=== PATIENT | female | born 1970 | race Caucasian/White ===

== ENCOUNTER 2023-06-25 16:25 | Emergency (ER) | payer BC, SELFPAY ==
[2023-06-25 16:44] VITALS: BP 160/98; PULSE 70; RESP 18; TEMP 36.6; O2SAT 99; BMI 47.0
--- NOTE | 2023-06-25 17:07 | US_ITS ---
The [address] [address] Patient Name: MEHRAN PATEL MRN: [id number] date: 1970 Sex: F Assigned Patient Location: ER Current Patient Location: Accession/Order Number: [id number] Exam Date: 06/25/2023 19:15 Report Date: 06/25/2023 20:34 At the request of: RYLEY HERRMANN Procedure: US venous doppler LE RT EXAM: US venous doppler LE RT HISTORY: dvt . Right leg pain and swelling for 2 days. COMPARISON: None. TECHNIQUE: Multiple sonographic images of the deep veins of the right lower extremity were obtained, supplemented with Doppler. FINDINGS: The deep veins of the right lower extremity are fairly well-visualized the groin to the mid calf. No filling defect is identified to indicate a thrombus. There is normal compression and augmentation of flow throughout. US/US venous doppler LE RT IMPRESSION: There is no direct or indirect evidence of deep vein thrombosis in the right lower extremity at this time. Electronically authenticated by: LEONORA GARCIA Date: 06/25/2023 20:34
--- NOTE | 2023-06-25 17:25 | ED_ITS ---
HPI - General Adult General Chief complaint: Extremity Injury, Lower Stated complaint: LOWER PAIN Time Seen by Provider: 06/25/23 17:07 Source: patient Mode of arrival: walk-in History of Present Illness HPI narrative: patient is a 52-year-old female who presents to the emergency department with concern for possible deep vein thrombosis. She expresses frustration that she called her PCPs office and they referred her to the Emergency Room for this. She has had two week history of swelling to the lower extremities bilaterally, she states she is on her feet for most of her work day. she has no personal history of deep vein thrombosis or PE. She states her mother did have a blood clot. She denies any injuries or traumas. She reports pain to the right posterior calf, she states it is tight. she denies the need for pain medication at this time. Related Data Previous Rx's Medication Instructions Recorded methocarbamol 750 mg tablet 750 mg PO TID PRN pain #20 tabs 06/25/23 Allergies Allergy/AdvReac Type Severity Reaction Status Date / Time No Known Drug Allergies Allergy Verified 06/25/23 16:50 Review of Systems ROS Constitutional Denies: fever or chills Ears, nose, mouth, and throat Denies: throat pain Cardiovascular Denies: chest pain Respiratory Denies: shortness of breath or cough Gastrointestinal Denies: nausea or vomiting Musculoskeletal Reports: extremity pain and extremity swelling; Denies: back pain or neck pain Integumentary/Breast Denies: rash Exam Narrative Exam Narrative: Gen.: Awake, alert, in no distress Head: Normocephalic, atraumatic ENT: Moist mucous membranes Respiratory: No respiratory distress Extremities: Moves extremities equally, no injuries noted; bilateral lower extremities with mild nonpitting edema. Right posterior calf is mildly tender, no erythema noted Psych: Normal mood and affect Neuro: No focal neuro deficit Skin: Warm, dry, intact Constitutional Vital Signs, click to edit/add: Last Vital Signs Temp 97.8 F 06/25/23 16:44 Pulse 70 06/25/23 16:44 Resp 18 06/25/23 16:44 BP 160/98 H 06/25/23 16:44 Pulse Ox 99 06/25/23 16:44 O2 Del Method Room Air 06/25/23 16:44 Course Vital Signs Vital signs: Vital Signs Temperature 97.8 F 06/25/23 16:44 Pulse Rate 70 06/25/23 16:44 Respiratory Rate 18 06/25/23 16:44 Blood Pressure 160/98 H 06/25/23 16:44 Pulse Oximetry 99 06/25/23 16:44 Oxygen Delivery Method Room Air 06/25/23 16:44 Temperature 97.8 F 06/25/23 16:44 Pulse Rate 70 06/25/23 16:44 Respiratory Rate 18 06/25/23 16:44 Blood Pressure 160/98 H 06/25/23 16:44 Pulse Oximetry 99 06/25/23 16:44 Oxygen Delivery Method Room Air 06/25/23 16:44 Medical Decision Making MDM Narrative Medical decision making narrative: ultrasound of the right lower extremity with no evidence of deep vein thrombosis. Laboratory studies within normal limits as well, no evidence of kidney failure or heart failure. Patient discharged home with muscle relaxant for musculoskeletal calf pain. Follow-up with PCP and return to the Emergency Room if symptoms change or worsen Medical Records Medical records reviewed: Yes I reviewed the patient's medical records Lab Data Lab results reviewed: Yes I reviewed the patient's lab results Labs: Lab Results 06/25/23 Range/Units 17:37 WBC 10.1 (4.0-11.0) 10^3/uL RBC 4.47 (4.20-5.40) 10^6/uL Hgb 11.9 L (12.0-16.0) g/dL Hct 36.6 (36.0-48.0) % MCV 81.9 (81.0-99.0) fL MCH 26.6 L (26.7-34.0) pg MCHC 32.5 (29.9-35.2) g/dL RDW 15.1 H (11.0-15.0) % Plt Count 469 H (150-450) 10^3/uL MPV 9.2 L (9.5-13.5) fL Neut % (Auto) 63.5 (43.0-75.0) % Lymph % (Auto) 26.4 (20.5-60.0) % Shoshone % (Auto) 7.1 (1.7-12.0) % Eos % (Auto) 2.0 (0.9-7.0) % Baso % (Auto) 0.6 (0.2-2.0) % Neut # (Auto) 6.4 (1.4-6.5) 10^3/uL Lymph # (Auto) 2.7 (1.2-3.8) 10^3/uL Shoshone # (Auto) 0.7 (0.3-0.8) 10^3/uL Eos # (Auto) 0.2 (0.0-0.7) 10^3/uL Baso # (Auto) 0.1 (0.0-0.1) 10^3/uL Abs Immat Gran (auto) 0.04 H (0.00-0.03) 10^3/uL Imm/Tot Granulo (auto) 0.4 (0.0-0.5) % Sodium 140 (136-145) mmol/L Potassium 3.6 (3.5-5.1) mmol/L Chloride 102 (98-107) mmol/L Carbon Dioxide 29.8 (21.0-32.0) mmol/L Anion Gap 11.8 BUN 9.0 (7.0-18.0) mg/dL Creatinine 0.65 (0.55-1.02) mg/dL Est GFR ( Amer) >60 (>=60) Est GFR (Non-Af Amer) >60 (>=60) BUN/Creatinine Ratio 13.8 Glucose 110 H (74-106) mg/dL Calcium 8.6 (8.5-10.1) mg/dL NT-Pro-B Natriuret Pep 61.0 (<=900.0) pg/mL Imaging Data Venous US: Attestation: I have reviewed the pertinent imaging results. Discharge Plan Discharge Chief Complaint: Extremity Injury, Lower Clinical Impression: Right calf pain Patient Disposition: Home, Self-Care Time of Disposition Decision: 20:09 Condition: Good Prescriptions / Home Meds: New methocarbamol 750 mg tablet 750 mg PO TID PRN (Reason: pain) Qty: 20 0RF Instructions: Leg Pain (ED) Stand Alone Forms: Portal Instructions Referrals: Physician,Non-Staff, MD [Primary Care Provider] - 1 week
[2023-06-25 17:45] LABS: Basophils Absolute Auto 0.1 10^3/uL (0.0-0.1); Basophils Percent Auto 0.6 % (0.2-2.0); Eosinophils Absolute Auto 0.2 10^3/uL (0.0-0.7); Hematocrit 36.6 % (36.0-48.0); Hemoglobin 11.9 g/dL (12.0-16.0); Immature Granulocytes Abs Auto 0.04 10^3/uL (0.00-0.03); Immature Granulocytes Pct Auto 0.4 % (0.0-0.5); Lymphocytes Absolute Auto 2.7 10^3/uL (1.2-3.8); Lymphocytes Percent Auto 26.4 % (20.5-60.0); Mean Corpuscular HGB Conc 32.5 g/dL (29.9-35.2); Mean Corpuscular Hemoglobin 26.6 pg (26.7-34.0); Mean Corpuscular Volume 81.9 fL (81.0-99.0); Mean Platelet Volume 9.2 fL (9.5-13.5); Monocytes Absolute Auto 0.7 10^3/uL (0.3-0.8); Monocytes Percent Auto 7.1 % (1.7-12.0); Neutrophils Absolute Auto 6.4 10^3/uL (1.4-6.5); Neutrophils Percent Auto 63.5 % (43.0-75.0); Platelet Count 469 10^3/uL (150-450); Red Blood Count 4.47 10^6/uL (4.20-5.40); Red Cell Distribution Width 15.1 % (11.0-15.0); White Blood Count 10.1 10^3/uL (4.0-11.0)
--- NOTE | 2023-06-25 17:49 | PC.NURSE ---
R CALF SWELLING AND PAIN FOR 2 DAYS. WORRIED ABOUT A DVT -- NO H/O DVTs PERSONALLY
[2023-06-25 18:06] LABS: Anion Gap 11.8; BUN Creatinine Ratio 13.8; Calcium 8.6 mg/dL (8.5-10.1); Carbon Dioxide 29.8 mmol/L (21.0-32.0); Chloride 102 mmol/L (98-107); Estimated GFR (African America >60 (>=60); Estimated GFR (Non-African Ame >60 (>=60); Glucose 110 mg/dL (74-106); Potassium 3.6 mmol/L (3.5-5.1); Sodium 140 mmol/L (136-145)
== END 2023-06-25 20:25 | disposition home or self-care (01) ==
PROVIDERS: Physician Assistant; Emergency Provider Emergency Medicine
DX: M79.661 Pain in right lower leg (principal)
CPT/HCPCS: 36415; 80048; 83880; 85025; 93971; 99284